=== PATIENT | female | born 1995 | race Caucasian/White ===

== ENCOUNTER 2017-06-04 15:02 | Emergency (ER) | payer SELFPAY ==
[2017-06-04 15:07] VITALS: O2SAT 100
--- NOTE | 2017-06-04 16:04 | ED PDOC ---
HPI: Psych/Substance Abuse Time Seen by Provider: 06/04/17 15:05 Chief Complaint (Nursing): Alcohol Ingestion Chief Complaint (Provider): ETOH - Vomited in ub[employer] History Per: EMS History/Exam Limitations: no limitations Current Symptoms Are (Timing): Still Present Modifying Factor(s): Alcohol Additional Complaint(s): PT denies drug use Past Medical History Reviewed: Historical Data, Nursing Documentation, Vital Signs Vital Signs: Last Vital Signs Temp 98.1 F 06/04/17 15:05 Pulse 98 H 06/04/17 15:05 Resp 16 06/04/17 15:05 BP 137/54 L 06/04/17 15:05 Pulse Ox 100 06/04/17 15:05 - Medical History PMH: No Chronic Diseases - Surgical History Surgical History: No Surg Hx - Family History Family History: States: No Known Family Hx - Living Arrangements Living Arrangements: With Family - Social History Current smoker - smoking cessation education provided: No Alcohol: Occasional - Allergies Allergies/Adverse Reactions: Allergies Allergy/AdvReac Type Severity Reaction Status Date / Time No Known Allergies Allergy Verified 06/04/17 15:05 Review of Systems ROS Statement: Except As Marked, All Systems Reviewed And Found Negative Constitutional: Negative for: Fever, Chills Psych: Positive for: Other Physical Exam - Reviewed Nursing Documentation Reviewed: Yes Vital Signs Reviewed: Yes - Physical Exam Appears: Positive for: Well, Non-toxic, No Acute Distress Head Exam: Positive for: ATRAUMATIC, NORMAL INSPECTION, NORMOCEPHALIC Skin: Positive for: Normal Color, Warm, DRY Eye Exam: Positive for: Normal appearance, EOMI, PERRL ENT: Positive for: Normal ENT Inspection Neck: Positive for: Normal, Painless ROM Cardiovascular/Chest: Positive for: Regular Rate, Rhythm Respiratory: Positive for: CNT, Normal Breath Sounds Back: Positive for: Normal Inspection Extremity: Positive for: Normal ROM Neurologic/Psych: Positive for: Alert, Oriented. 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 IV fluids and zofran ordered. 2010 - Pt awake, reports feeling much better. Clear speech and steady gait. Pt given his belonging Disposition - Clinical Impression Clinical Impression: Alcohol abuse - Patient ED Disposition Is Patient to be Admitted: No - Disposition Disposition: Routine/Home Disposition Time: 20:09 Condition: GOOD Instructions: Abuse of Alcohol (ED) Forms: [employer] (Danish)
[2017-06-04] MEDS ORDERED: Sodium Chloride 0.9% 1,000 ML IV STA (16:05)
[2017-06-04 21:08] VITALS: BP 122/68; PULSE 65; RESP 14; TEMP 97.2
== END 2017-06-04 20:50 | disposition home or self-care (01) ==
LOC: H.ER 15:02
DX: F10.10 Alcohol abuse, uncomplicated (principal)
CPT/HCPCS: 99284; G0480; J2405; J7040